=== PATIENT | female | born 1945 | race Caucasian/White ===

== ENCOUNTER 2018-04-06 00:26 | Emergency (ER) | payer OTHER ==
[~2018-04-06] VITALS: Ht 165.1 cm; Wt 65.8 kg
--- NOTE | 2018-04-06 00:43 | NUR ---
DR. WHITLOCK AT BEDSIDE FOR MSE.
--- NOTE | 2018-04-06 01:25 | NUR ---
Patient discharged to home in stable conditon with son taking patient home. Written and verbal after care instructions given. Patient verbalizes understanding of instructions. Walked out ER with no distress noted
[2018-04-06 01:28] VITALS: BP 155/85
== END 2018-04-06 01:29 | disposition home or self-care (01) ==
LOC: ER 00:29
DX: S42.202A Unspecified fracture of upper end of left humerus, initial encounter for closed fracture (principal); I25.10 Atherosclerotic heart disease of native coronary artery without angina pectoris; I10 Essential (primary) hypertension; Z95.1 Presence of aortocoronary bypass graft; W17.89XA Other fall from one level to another, initial encounter; Y93.89 Activity, other specified; Y92.89 Other specified places as the place of occurrence of the external cause; Y99.8 Other external cause status
CPT/HCPCS: 73060; A4663